=== PATIENT | male | born 1980 | race African-American/Black ===

== ENCOUNTER 2023-08-23 14:12 | Emergency (ER) | payer OTHER ==
[~2023-08-23] VITALS: Ht 190.5 cm; Wt 104.5 kg
[2023-08-23 14:23] VITALS: TEMP 97.9
[2023-08-23 16:08] VITALS: BP 160/83; PULSE 51
== END 2023-08-23 16:08 | disposition home or self-care (01) ==
LOC: COL.ER 14:12
DX: S20.212A Contusion of left front wall of thorax, initial encounter (principal); W23.0XXA Caught, crushed, jammed, or pinched between moving objects, initial encounter; Y92.810 Car as the place of occurrence of the external cause

== ENCOUNTER 2023-12-15 14:45 | Emergency (ER) | payer OTHER ==
[~2023-12-15] VITALS: Ht 188 cm; Wt 100.0 kg
[2023-12-15 14:46] VITALS: TEMP 98.3
[2023-12-15] MEDS ORDERED: LR 1,000 ML IV ONE ×2 (15:00→15:45)
[2023-12-15 15:14] LABS: HEMATOCRIT 41.7 % (42.0-52.0); HEMOGLOBIN 14.9 g/dl (13.5-18.0); MEAN CELL VOLUME 89 fl (80.0-100.0); MEAN CORPUSCULAR HEMOGLOBIN 32 pg (27-31); MEAN CORPUSCULAR HGB CONC 36 g/dl (33.0-37.0); MEAN PLATELET VOLUME 9.6 fl (7.4-10.4); PLATELET COUNT 180 K/mm3 (130-400); RED BLOOD COUNT 4.71 M/mm3 (4.20-5.60); REDCELL DISTRIBUTION WIDTH-CV 11.3 % (11.5-14.5)
[2023-12-15 15:32] LABS: CALCIUM 9.1 mg/dL (8.4-10.2); CREATININE, serum 1.54 mg/dL (0.72-1.25)
[2023-12-15 16:54] VITALS: BP 140/90; PULSE 61
== END 2023-12-15 17:00 | disposition home or self-care (01) ==
LOC: COL.ER 14:45
PROVIDERS: Emergency Medicine
DX: E86.0 Dehydration (principal); R25.2 Cramp and spasm
CPT/HCPCS: J2360; J7120